=== PATIENT | male | born 1930 | race Caucasian/White ===

== ENCOUNTER 2017-05-10 15:31 | Emergency (ER) | payer OTHER, SELFPAY ==
[~2017-05-10] VITALS: Ht 177.8 cm; Wt 60.0 kg
[~2017-05-10 15:31] MED LIST: ACET325T14 PO; ALLO300T PO; CYAN2000 PO; DOCU240C53 PO; DONE5TAB52 PO; DOXA4TAB3 PO; LISI-170 PO; OMEG1CAP6 PO; OMEP-110 PO
[2017-05-10] MEDS ORDERED: LISI2.5T PO (15:51)
[2017-05-10] MEDS ORDERED: DOXA1TAB2 PO (15:51)
[2017-05-10] MEDS ORDERED: SILVER SULF. CRM 1%, 400GM TP ONE (16:00)
[2017-05-10] MEDS ORDERED: SODIUM CHLORIDE 0.9% 1,000ML IVBOLUS ONE (16:00)
[2017-05-10] MEDS ORDERED: DIPH,PERTUSS(ACELL),TET VAC/PF 0.5 ML IM-VACC ONE ×2 (16:00→16:15)
[2017-05-10] MEDS ORDERED: SILVER SULF. CRM 1% , 25GM ONE (16:15)
[2017-05-10] MEDS ORDERED: morphine SULFATE 10 MG/ML, 1ML ONE (16:28)
[2017-05-10] MEDS ORDERED: ONDANSETRON 2MG/ML, 2ML ONE (16:29)
[2017-05-10] MEDS ORDERED: PLEASE ENTER ALLERGIES MC SCH ×2 (16:30)
[2017-05-10] MEDS ORDERED: SODIUM CHLORIDE 0.9% 1,000 ML IV ONE (16:33)
[2017-05-10] MEDS ORDERED: MORPHINE SULFATE 4 MG/ML, 1ML IVPush PRN (17:00)
[2017-05-10] MEDS ORDERED: SODIUM CHLORIDE FLUSH 10ML SYR IVF ONE (17:00)
[2017-05-10] MEDS ORDERED: ONDANSETRON 2MG/ML, 2ML IVPush ONE (17:00)
[2017-05-10] MEDS ORDERED: BACITRACIN OINT 500U/GM, 15 GM TP PRN (17:30)
[2017-05-10 17:38] VITALS: BP 170/100
== END 2017-05-10 18:17 ==
LOC: ED 17:26
DX: T24.212A Burn of second degree of left thigh, initial encounter (principal); T24.222A Burn of second degree of left knee, initial encounter; T24.202A Burn of second degree of unspecified site of left lower limb, except ankle and foot, initial encounter; I10 Essential (primary) hypertension; F17.210 Nicotine dependence, cigarettes, uncomplicated; X00.8XXA Other exposure to uncontrolled fire in building or structure, initial encounter; Y93.89 Activity, other specified; Y92.511 Restaurant or cafe as the place of occurrence of the external cause; Y99.8 Other external cause status
CPT/HCPCS: 16020; 51702; 90471; 90715; 96361; 96374; 96375; 99291; J2405; J7030